=== PATIENT | female | born 1975 | race Caucasian/White ===

== ENCOUNTER 2016-08-14 15:04 | Emergency (ER) | payer MEDICAID ==
[2016-08-14] MEDS ORDERED: CLINDAMYCIN HCL 150 MG CAPSULE PO ONE (16:24)
--- NOTE | 2016-08-14 16:29 | ER Document Report ---
HPI - HPI Patient complains to provider of: tooth abscess Onset: Other - several days Pain Level: 5 Context: 41 yo female with toothpaina and abscess upper right frontal. No fever or chills. Also wants a referral to orthopedics for injury/deformity of 3rd left finger 1 month ago. She had cut it over the PIP joint frantz work and did not seek treatment. Associated Symptoms: None Exacerbated by: Denies Relieved by: Denies - ROS ROS below otherwise negative: Yes Systems Reviewed and Negative: Yes All other systems reviewed and negative - REPRODUCTIVE Reproductive: DENIES: : - DERM Skin Color: Normal Past Medical History - General Information source: Patient - Social History Smoking Status: Current Every Day Smoker Frequency of alcohol use: None Drug Abuse: None Lives with: Spouse/Significant other Family History: Arthritis, CVA, DM, Hyperlipidemia, Hypertension, Malignancy Patient has suicidal ideation: No Patient has homicidal ideation: No Pulmonary Medical History: Reports: Hx Asthma, Hx Bronchitis Renal/ Medical History: Reports: Hx Ovarian Cysts - PCOS.. Denies: Hx Peritoneal Dialysis Musculoskeltal Medical History: Reports Hx Musculoskeletal Deformity, Reports Hx Musculoskeletal Trauma Psychiatric Medical History: Reports: Hx Attention Deficit Hyperactivity Disorder, Hx Bipolar Disorder, Hx Post Traumatic Stress Disorder Past Surgical History: Reports: Hx Orthopedic Surgery - Knee - Immunizations Immunizations up to date: No Hx Diphtheria, Pertussis, Tetanus Vaccination: No Vertical Provider Document - CONSTITUTIONAL Agree With Documented VS: Yes Exam Limitations: No Limitations - INFECTION CONTROL TRAVEL OUTSIDE OF THE [place] 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 Cardenas who said to place the boutonniere deformity at a 90 angle of the MCP and a 90 angle at the PIP. I will have the patient call for follow- up appointment with Dr. ahn. 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 marion who is a hand specialist See the dentist Return to the emergency room for any increased facial swelling or pain or fever Please complete the patient satisfaction survey if you get one, and return it.. If you do not receive a survey, then you can go to the [facility] website, [email or web address] and place your comments about your very good care. Thank you very much. It was a pleasure being your medical provider today. Prescriptions: Ibuprofen [Motrin 800 mg Tablet] 800 mg PO Q8HP PRN #30 tablet PRN Reason: Clindamycin HCl [Cleocin 150 mg Capsule] 300 mg PO TID #42 capsule Referrals: LENCHO AHN DO [ACTIVE STAFF] - Follow up tomorrow (call the office for appt this week)
[2016-08-14] MEDS ORDERED: ONDANSETRON 4 MG TAB.RAPDIS PO ONE (16:31)
[2016-08-14] MEDS ORDERED: IBUPROFEN 800 MG TABLET PO ONE (16:31)
--- NOTE | 2016-08-14 17:24 | RADIOLOGY REPORT (SQ) ---
EXAM DESCRIPTION: FINGER LEFT COMPLETED DATE/TIME: 08/14/2016 5:06 pm REASON FOR STUDY: injury 1 month ago, left 3rd COMPARISON: None. NUMBER OF VIEWS: Three views. TECHNIQUE: AP, lateral, and oblique images acquired of the left third finger. LIMITATIONS: None. FINDINGS: MINERALIZATION: Normal. BONES: No acute fracture or dislocation. No worrisome bone lesions. SOFT TISSUES: 3rd digit PIP soft tissue swelling. No foreign body. OTHER: No other significant finding. IMPRESSION: 3rd digit PIP soft tissue swelling. No fracture identified. COMMENT: SITE OF TRAUMA/COMPLAINT MARKED/STAMP COMPLETED: No TECHNICAL DOCUMENTATION: JOB ID: [id number] [employer]- All Rights Reserved
[2016-08-14 18:24] VITALS: BP 128/72
== END 2016-08-14 18:18 | disposition home or self-care (01) ==
LOC: ER 15:04
DX: K04.7 Periapical abscess without sinus (principal); M20.022 Boutonniere deformity of left finger(s); W45.8XXS Other foreign body or object entering through skin, sequela; F17.200 Nicotine dependence, unspecified, uncomplicated; J45.909 Unspecified asthma, uncomplicated; K02.9 Dental caries, unspecified
CPT/HCPCS: 99283; 73140; S0119

== ENCOUNTER 2017-08-19 17:58 | Emergency (ER) | payer SELFPAY ==
[2017-08-19 18:06] VITALS: BP 112/53
--- NOTE | 2017-08-19 18:35 | RADIOLOGY REPORT (SQ) ---
EXAM DESCRIPTION: FINGER RIGHT COMPLETED DATE/TIME: 08/19/2017 6:25 pm REASON FOR STUDY: right 3rd finger dog bite COMPARISON: None. NUMBER OF VIEWS: Three views. TECHNIQUE: AP, lateral, and oblique images acquired of the right third finger. LIMITATIONS: None. FINDINGS: MINERALIZATION: Normal. BONES: No acute fracture or dislocation. No worrisome bone lesions. SOFT TISSUES: No soft tissue swelling. No foreign body. OTHER: No other significant finding. IMPRESSION: NO RADIOGRAPHIC EVIDENCE OF ACUTE INJURY. COMMENT: SITE OF TRAUMA/COMPLAINT MARKED/STAMP COMPLETED: No TECHNICAL DOCUMENTATION: JOB ID: [id number] [employer]- All Rights Reserved Reading location - IP/workstation name: [email or web address]
[2017-08-19] MEDS ORDERED: AMOXICILLIN TR/POT CLAVULANATE 500-125 MG TAB PO ONE (19:24)
[2017-08-19] MEDS ORDERED: DIPH/PERTUSS(ACELL)/TETANUS VAC/PF 0.5 ML SYR (>=10YO) IM ONE (19:31)
--- NOTE | 2017-08-19 19:35 | ER Document Report ---
ED Animal Bite - General Chief Complaint: Dog Bite Stated Complaint: DOG BITE/RIGHT MIDDLE FINGER Time Seen by Provider: 08/19/17 18:20 Mode of Arrival: Ambulatory Information source: Patient TRAVEL OUTSIDE OF THE [place] IN LAST 30 DAYS: No - HPI Patient complains to provider of: Right middle finger dog bite. Notes: Patient is here with complaints of dog bite to the right middle finger. She states that she was bit by her dog while at the vet. Her dog started to fight, she attempted to break the fight up and was accidentally bit at the proximal phalanx of the right middle finger. Bleeding is controlled. She is unsure of her last tetanus shot. She is unsure if her dog's immunizations are up-to-date , but the dog is at her house and they will be checking the dog for any signs of rabies. She denies any fevers. No nausea, vomiting, diarrhea. No numbness , tingling, weakness. No other injuries and no other complaints. - Related Data Allergies/Adverse Reactions: Latex, Natural Rubber Allergy (Verified 08/19/17 17:59) Past Medical History - Social History Smoking Status: Unknown if Ever Smoked Family History: Arthritis, CVA, DM, Hyperlipidemia, Hypertension, Malignancy Patient has suicidal ideation: No Patient has homicidal ideation: No Pulmonary Medical History: Reports: Hx Asthma, Hx Bronchitis Renal/ Medical History: Reports: Hx Ovarian Cysts - PCOS.. Denies: Hx Peritoneal Dialysis Musculoskeltal Medical History: Reports Hx Musculoskeletal Deformity, Reports Hx Musculoskeletal Trauma Psychiatric Medical History: Reports: Hx Attention Deficit Hyperactivity Disorder, Hx Bipolar Disorder, Hx Post Traumatic Stress Disorder Past Surgical History: Reports: Hx Orthopedic Surgery - Knee - Immunizations Immunizations up to date: No Hx Diphtheria, Pertussis, Tetanus Vaccination: No Review of Systems - Review of Systems -: Yes All other systems reviewed and negative Physical Exam - Vital signs Vitals: Temp Pulse Resp BP Pulse Ox 98.2 F 96 18 112/53 L 97 08/19/17 18:02 08/19/17 18:02 08/19/17 18:02 08/19/17 18:02 08/19/17 18:02 - Notes Notes: GENERAL: alert, cooperative, nontoxic, no distress. HEAD: normocephalic, atraumatic EYES: conjunctiva pink without discharge, no external redness or swelling. EARS: no external swelling, no external redness NOSE: atraumatic, no external swelling MOUTH/THROAT: mucous membranes moist and pink NECK: soft, supple, full range of motion, no meningismus. CHEST: no distress, lungs clear and equal throughout. No wheezing, rales, rhonchi. CARDIAC: regular rate and rhythm, no murmur, normal capillary refill, normal pulses. BACK: full range of motion, no CVA tenderness. EXTREMITIES: full range of motion of all extremities. No redness, no swelling. NEURO: alert and oriented 3, no focal deficits, full range of motion of all extremities. PYSCH: appropriate mood, affect. Patient is cooperative. SKIN: pink, warm, dry, no rash. Puncture wound to the proximal phalanx of the right middle finger. No active bleeding. No foreign body. Full flexion and extension of the finger with normal cap refill and sensation distally. No redness or drainage. Course - Re-evaluation Re-evalutation: 08/19/17 19:32 Patient is nontoxic-appearing with stable vitals. She is here with complaints of dog bite to the right middle finger. She was attempting to break up her 2 dogs fighting when she was bit on the right middle finger. She is unsure of her last tetanus. She is not completely sure of her dog's rabies shots are up- to-date, but animal control be checking the dog. She was given a tetanus here. Wound was cleaned and a sterile dressing was applied. She was given Augmentin here. She will be discharged home with a prescription for Augmentin. Prescription for Naprosyn as needed for pain. She is instructed to clean wound twice a day with soap and water. Follow-up for increasing pain, fever, redness, drainage, any further concerns. The patient's emergency department workup and current diagnosis were explained to the patient and or family. Follow-up instructions were provided. Medications if prescribed were discussed. Instructions for when to return to the emergency department including specific worrisome symptoms were discussed with the patient and/or family. - Vital Signs Vital signs: Temp Pulse Resp BP Pulse Ox 98.2 F 96 18 112/53 L 97 08/19/17 18:02 08/19/17 18:02 08/19/17 18:02 08/19/17 18:02 06/20/18 18:02 - Diagnostic Test Radiology reviewed: Image reviewed, Reports reviewed - Right hand negative for fracture or foreign body Discharge - Discharge Clinical Impression: Dog bite Qualifiers: Encounter type: initial encounter Qualified Code(s): W54.0XXA - Bitten by dog, initial encounter Condition: Stable Disposition: HOME, SELF-CARE Instructions: Animal Bites ([facility]) Additional Instructions: Take medication as prescribed. Drink lots of fluids. Clean wound twice a day with soap and water. Follow-up for increasing pain, fever, redness, drainage, any further concerns. Prescriptions: Amox Tr/Potassium Clavulanate [Augmentin 875-125 Tablet] 1 tab PO BID 10 Days tablet Naproxen [Naprosyn] 500 mg PO BID #20 tablet Forms: Smoking Cessation Education Referrals: [facility] [Provider Group] - Follow up as needed
== END 2017-08-19 20:05 | disposition home or self-care (01) ==
LOC: ER 17:58
DX: S61.252A Open bite of right middle finger without damage to nail, initial encounter (principal); W54.0XXA Bitten by dog, initial encounter; Y93.K9 Activity, other involving animal care; J45.909 Unspecified asthma, uncomplicated; Z23 Encounter for immunization; Z91.040 Latex allergy status
CPT/HCPCS: 90471; 90715; 99283

== ENCOUNTER 2018-09-26 11:15 | Emergency (ER) | payer SELFPAY ==
--- NOTE | 2018-09-26 12:49 | ER Document Report ---
ED Medical Screen (RME) - General Chief Complaint: Breathing Difficulty Stated Complaint: DIFFICULTY BREATHING Time Seen by Provider: 09/26/18 12:36 Notes: Patient is a 43-year-old female who presents to the emergency department with a chief complaint of back pain. She has had her back pain for the past few days. She states that she also has some dysuria. States the dysuria started first then had her back pain. She is also had some difficulty breathing. Patient does have history of asthma and hepatitis C. She is a current meth user. The last time she used meth was 1 week ago. Exam: CVA tenderness on both sides. I have greeted and performed a rapid initial assessment of this patient. A comprehensive ED assessment and evaluation of the patient, analysis of test results and completion of medical decision making process will be conducted by an additional ED providers. TRAVEL OUTSIDE OF THE [place] IN LAST 30 DAYS: No - Related Data Allergies/Adverse Reactions: Latex, Natural Rubber Allergy (Verified 09/26/18 11:15) Past Medical History - Social History Chew tobacco use (# tins/day): No Frequency of alcohol use: Rare Drug Abuse: Methamphetamine Pulmonary Medical History: Reports: Hx Asthma, Hx Bronchitis Renal/ Medical History: Reports: Hx Ovarian Cysts - PCOS.. Denies: Hx Periton eal Dialysis Musculoskeltal Medical History: Reports Hx Musculoskeletal Deformity, Reports Hx Musculoskeletal Trauma Psychiatric Medical History: Reports: Hx Attention Deficit Hyperactivity Disorder, Hx Bipolar Disorder, Hx Post Traumatic Stress Disorder Past Surgical History: Reports: Hx Orthopedic Surgery - Knee - Immunizations Immunizations up to date: No Hx Diphtheria, Pertussis, Tetanus Vaccination: No Physical Exam - Vital signs Vitals: Temp Pulse Resp BP Pulse Ox 97.6 F 107 H 18 136/88 H 100 09/26/18 11:18 09/26/18 11:18 09/26/18 11:18 09/26/18 11:18 09/26/18 11:18 Course - Vital Signs Vital signs: Temp Pulse Resp BP Pulse Ox 97.6 F 107 H 19 133/95 H 99 09/26/18 11:18 09/26/18 11:18 09/26/18 14:00 09/26/18 14:00 09/26/18 14:00 - Laboratory Result Diagrams: 09/26/18 13:20 09/26/18 13:20 Laboratory results interpreted by me: 09/26/18 09/26/18 09/26/18 13:20 13:20 13:20 Hgb 15.9 H Hct 47.8 H AST 87 H ALT 164 H Alkaline Phosphatase 127 H Urine Protein 100 H Urine Blood MODERATE H Ur Leukocyte Esterase SMALL H
[2018-09-26 13:36] LABS: ABSOLUTE LYMPHOCYTES (AUTO) 2.2 10^3/uL (0.5-4.7); ABSOLUTE NEUT (AUTO) 7.1 10^3/uL (1.7-8.2); BASOPHILS % (AUTO) 0.4 % (0-2); EOSINOPHILS % (AUTO) 0.4 % (0-6); HEMATOCRIT 47.8 % (36.0-47.0); HEMOGLOBIN 15.9 g/dL (12.0-15.5); MEAN CORPUSCULAR HGB CONC 33.3 g/dL (32.0-36.0); MEAN CORPUSCULAR VOLUME 93 fl (80-97); PLATELET COUNT 226 10^3/uL (150-450); RED BLOOD COUNT 5.13 10^6/uL (3.72-5.28); RED CELL DISTRIBUTION WIDTH 13.7 % (11.5-14.0); SEGMENTED NEUTROPHILS % (AUTO) 68.2 % (42-78); TOTAL CELLS COUNTED % (AUTO) 100 %; WHITE BLOOD COUNT 10.5 10^3/uL (4.0-10.5)
[2018-09-26 13:53] LABS: APPEARANCE,URINE CLEAR; BILIRUBIN,URINE NEGATIVE (NEGATIVE); COLOR,URINE YELLOW; GLUCOSE, URINE NEGATIVE (NEGATIVE); KETONES,URINE NEGATIVE (NEGATIVE); LEUKOCYTE ESTERASE,URINE SMALL (NEGATIVE); NITRITE,URINE NEGATIVE (NEGATIVE); PROTEIN,URINE 100 mg/dL (NEGATIVE); URINE SPECIFIC GRAVITY 1.012; UROBILINOGEN,URINE NEGATIVE mg/dL (<2.0)
[2018-09-26 13:57] LABS: ALANINE AMINOTRANSFERASE 164 U/L (9-52); ALBUMIN 4.7 g/dL (3.5-5.0); ALKALINE PHOSPHATASE 127 U/L (38-126); ANION GAP 14 (5-19); ASPARTATE AMINO TRANSFERASE 87 U/L (14-36); BILIRUBIN,DIRECT 0.4 mg/dL (0.0-0.4); BILIRUBIN,TOTAL 0.8 mg/dL (0.2-1.3); BLOOD UREA NITROGEN 10 mg/dL (7-20); CALCIUM 9.9 mg/dL (8.4-10.2); CARBON DIOXIDE 23 mmol/L (22-30); CHLORIDE 102 mmol/L (98-107); CREATINE KINASE 31 U/L (30-135); GLUCOSE 103 mg/dL (75-110); POTASSIUM 4.3 mmol/L (3.6-5.0); TOTAL PROTEIN 8.1 g/dL (6.3-8.2)
--- NOTE | 2018-09-26 14:12 | ER Document Report ---
ED Respiratory Problem - General Chief Complaint: Breathing Difficulty Stated Complaint: DIFFICULTY BREATHING Time Seen by Provider: 09/26/18 12:36 TRAVEL OUTSIDE OF THE [place] IN LAST 30 DAYS: No - Related Data Allergies/Adverse Reactions: Latex, Natural Rubber Allergy (Verified 09/26/18 11:15) Past Medical History - Social History Smoking Status: Current Every Day Smoker Chew tobacco use (# tins/day): No Frequency of alcohol use: Rare Drug Abuse: Methamphetamine Family History: Arthritis, CVA, DM, Hyperlipidemia, Hypertension, Malignancy Patient has suicidal ideation: No Patient has homicidal ideation: No Pulmonary Medical History: Reports: Hx Asthma, Hx Bronchitis Renal/ Medical History: Reports: Hx Ovarian Cysts - PCOS.. Denies: Hx Peritoneal Dialysis Musculoskeletal Medical History: Reports Hx Musculoskeletal Deformity, Reports Hx Musculoskeletal Trauma Psychiatric Medical History: Reports: Hx Attention Deficit Hyperactivity Disorder, Hx Bipolar Disorder, Hx Post Traumatic Stress Disorder Past Surgical History: Reports: Hx Orthopedic Surgery - Knee - Immunizations Immunizations up to date: No Hx Diphtheria, Pertussis, Tetanus Vaccination: No Physical Exam - Vital signs Vitals: Temp Pulse Resp BP Pulse Ox 97.6 F 107 H 18 136/88 H 100 09/26/18 11:18 09/26/18 11:18 09/26/18 11:18 09/26/18 11:18 09/26/18 11:18 Course - Re-evaluation Re-evalutation: 09/26/18 14:11 09/26/18 14:39 - Vital Signs Vital signs: Temp Pulse Resp BP Pulse Ox 97.6 F 107 H 19 133/95 H 99 09/26/18 11:18 09/26/18 11:18 09/26/18 14:00 09/26/18 14:00 09/26/18 14:00 - Laboratory Result Diagrams: 09/26/18 13:20 09/26/18 13:20 Laboratory results interpreted by me: 09/26/18 09/26/18 09/26/18 13:20 13:20 13:20 Hgb 15.9 H Hct 47.8 H APTT AST 87 H ALT 164 H Alkaline Phosphatase 127 H Urine Protein 100 H Urine Blood MODERATE H Ur Leukocyte Esterase SMALL H 09/26/18 14:00 Hgb Hct APTT 23.0 L AST ALT Alkaline Phosphatase Urine Protein Urine Blood Ur Leukocyte Esterase
[2018-09-26 14:16] LABS: INTERNATIONAL RATION (INR) 0.96; PROTHROMBIN TIME 12.8 SEC (11.4-15.4)
[2018-09-26 14:19] LABS: D-DIMER 0.36 ug/mL (0.00-0.50)
--- NOTE | 2018-09-26 14:19 | RADIOLOGY REPORT (SQ) ---
EXAM DESCRIPTION: CHEST SINGLE VIEW COMPLETED DATE/TIME: 09/26/2018 2:02 pm REASON FOR STUDY: difficulty breathing COMPARISON: 2015 NUMBER OF VIEWS: One view. TECHNIQUE: Single frontal radiographic view of the chest acquired. LIMITATIONS: None. FINDINGS: LUNGS AND PLEURA: No opacities, masses or pneumothorax. No pleural effusion. Attenuated bl ood vessels and flattened aamir-diaphragms. MEDIASTINUM AND HILAR STRUCTURES: No masses. Contour normal. HEART AND VASCULAR STRUCTURES: Heart normal in size. Normal vasculature. BONES: No acute findings. HARDWARE: None in the chest. OTHER: No other significant finding. IMPRESSION: COPD. NO ACUTE RADIOGRAPHIC FINDING IN THE CHEST. TECHNICAL DOCUMENTATION: JOB ID: [id number] [employer]- All Rights Reserved Reading location - IP/workstation name: [email or web address]
[2018-09-26] MEDS ORDERED: CEFTRIAXONE 1 GM/D5W RTU 1 GM/50 ML RTUPB IV ONE (14:37)
--- NOTE | 2018-09-26 14:39 | ER Document Report ---
ED General - General Chief Complaint: Breathing Difficulty Stated Complaint: DIFFICULTY BREATHING Time Seen by Provider: 09/26/18 12:36 Information source: Patient Notes: HPI: 43-year-old female that presents today with 3 days of bilateral back pain and some dysuria. She denies fevers or vomiting. She denies a history of diabetes. She denies any weakness or numbness of her legs, abdominal pain, or chest pain. She does states she has some increased back pain at times when she takes a deep breath. She denies any cough. She does have a history of asthma. She denies any calf pain, leg swelling, recent trips or travel. No history of kidney stones. No family history of kidney stones. No family history of D VT/PE. ROS: See HPI All other review of systems reviewed and otherwise negative Reviewed vital signs and nursing note as charted by RN. PHYSICAL EXAM: CONSTITUTIONAL: Alert and oriented and responds appropriately to questions. Well-appearing; well-nourished HEAD: Normocephalic; atraumatic EYES: PERRL; Conjunctivae clear, sclerae non-icteric CARD: Regular rate and rhythm; no murmurs; symmetric distal pulses RESP: Normal chest excursion without splinting or tachypnea; breath sounds clear and equal bilaterally; no wheezes, no rhonchi, no rales ABD/GI: Normal bowel sounds; non-distended; soft, non-tender; no palpable organomegaly or masses BACK: The back appears normal and is non-tender to palpation along the midline spine; patient does have some bilateral flank pain with no swelling or erythema EXT: Normal ROM in all joints; non-tender to palpation; no edema SKIN: No acute lesions noted NEURO: CN 2-12 intact; 5/5 bilateral upper and lower extremity strength with sensation intact to light touch PSYCH: The patient's mood and manner are appropriate. Grooming and personal h ygiene are appropriate. TRAVEL OUTSIDE OF THE [place] IN LAST 30 DAYS: No - Related Data Allergies/Adverse Reactions: Latex, Natural Rubber Allergy (Verified 09/26/18 11:15) Past Medical History - Social History Smoking Status: Current Every Day Smoker Chew tobacco use (# tins/day): No Frequency of alcohol use: Rare Drug Abuse: Methamphetamine Family History: Arthritis, CVA, DM, Hyperlipidemia, Hypertension, Malignancy Patient has suicidal ideation: No Patient has homicidal ideation: No Pulmonary Medical History: Reports: Hx Asthma, Hx Bronchitis Renal/ Medical History: Reports: Hx Ovarian Cysts - PCOS.. Denies: Hx Peritoneal Dialysis Musculoskeletal Medical History: Reports Hx Musculoskeletal Deformity, Reports Hx Musculoskeletal Trauma Psychiatric Medical History: Reports: Hx Attention Deficit Hyperactivity Disorder, Hx Bipolar Disorder, Hx Post Traumatic Stress Disorder Past Surgical History: Reports: Hx Orthopedic Surgery - Knee - Immunizations Immunizations up to date: No Hx Diphtheria, Pertussis, Tetanus Vaccination: No Physical Exam - Vital signs Vitals: Temp Pulse Resp BP Pulse Ox 97.6 F 107 H 18 136/88 H 100 09/26/18 11:18 09/26/18 11:18 09/26/18 11:18 09/26/18 11:18 09/26/18 11:18 Course - Re-evaluation Re-evalutation: Given the history and physical examination we will order basic labs, cardiac labs, urine analysis, and reassess. A d-dimer was ordered in triage. I do believe pulmonary embolism, ACS, or aortic dissection to be extremely unlikely. Patient has had no missed menstrual periods, vaginal bleeding or discharge. She denies any pelvic pain. No personal family history of kidney stones. 09/26/18 14:39 EKG shows a heart rate of 99, normal sinus rhythm, normal axis, no ST elevation or depression. Labs as recorded. White blood cell count is recorded. Urine analysis showing multiple white blood cells. Vital signs are stable with no hypoxia or tachycardia. 09/26/18 14:45 Patient denies any and all pain at this time. Only 7 red blood cells in the urine. Patient denies any nausea and the pain is much better. She was sleeping upon my arrival into the emergency department. I do not believe any CT imaging is necessary at this time. Given the lack of fever, diabetes, or vomiting, I will provide 1 g of Rocephin and send a urine culture and start the patient on a course of Keflex. Patient is comfortable with this plan and disposition. - Vital Signs Vital signs: Temp Pulse Resp BP Pulse Ox 97.6 F 107 H 19 133/95 H 99 09/26/18 11:18 09/26/18 11:18 09/26/18 14:00 09/26/18 14:00 09/26/18 14:00 - Laboratory Result Diagrams: 09/26/18 13:20 09/26/18 13:20 Laboratory results interpreted by me: 09/26/18 09/26/18 09/26/18 13:20 13:20 13:20 Hgb 15.9 H Hct 47.8 H APTT AST 87 H ALT 164 H Alkaline Phosphatase 127 H Urine Protein 100 H Urine Blood MODERATE H Ur Leukocyte Esterase SMALL H 09/26/18 14:00 Hgb Hct APTT 23.0 L AST ALT Alkaline Phosphatase Urine Protein Urine Blood Ur Leukocyte Esterase Discharge - Discharge Clinical Impression: Pyelonephritis Condition: Good Disposition: HOME, SELF-CARE Additional Instructions: Come back immediately with any increased pain, fevers or vomiting, anterior chest pain or abdominal pain, rash, or any other acute problems. Please take the antibiotics as prescribed and please follow-up with the primary care physician as discussed regarding reassessment of the urine analysis and culture. Prescriptions: Cephalexin Monohydrate [Keflex 500 mg Capsule] 500 mg PO TID 10 Days #30 capsule
[2018-09-26 15:10] VITALS: BP 154/93
--- NOTE | 2018-09-26 21:34 | EKG REPORT ---
SEVERITY:- NORMAL ECG - SINUS RHYTHM : Confirmed by: Abhay Wallace 26-Sep-2018 21:32:08
== END 2018-09-26 16:28 | disposition home or self-care (01) ==
LOC: ER 11:15
DX: N12 Tubulo-interstitial nephritis, not specified as acute or chronic (principal); R06.00 Dyspnea, unspecified; R30.0 Dysuria; F17.200 Nicotine dependence, unspecified, uncomplicated; Z91.040 Latex allergy status
CPT/HCPCS: 93005; 99284; 36415; 87086; 82553; 82550; 84703; 85025; 85610; 85730; 87088; 80053; 81001; 84484; 85379; 71045; 93010; J0696; 87186

== ENCOUNTER 2019-05-15 18:03 | Emergency (ER) | payer SELFPAY ==
--- NOTE | 2019-05-15 18:43 | ER Document Report ---
HPI - HPI Time Seen by Provider: 05/15/19 18:40 Onset: Other - This a 43-year-old female has a history of right knee pain and dislocation she had surgery on it in 2011 she states that she had a dislocated approximately a month ago was able to get back in and seems to be popping in and out since that point in time. She tripped over her dog today and also has pain to her right elbow as well as that right knee today. - REPRODUCTIVE Reproductive: DENIES: : Past Medical History - Social History Smoking Status: Current Every Day Smoker Chew tobacco use (# tins/day): No Smoking Education Provided: No Family History: Arthritis, CVA, DM, Hyperlipidemia, Hypertension, Malignancy Pulmonary Medical History: Reports: Hx Asthma, Hx Bronchitis Renal/ Medical History: Reports: Hx Ovarian Cysts - PCOS.. Denies: Hx Peritoneal Dialysis Musculoskeletal Medical History: Reports Hx Musculoskeletal Deformity, Reports Hx Musculoskeletal Trauma Psychiatric Medical History: Reports: Hx Attention Deficit Hyperactivity Disorder, Hx Bipolar Disorder, Hx Post Traumatic Stress Disorder Past Surgical History: Reports: Hx Orthopedic Surgery - Knee - Immunizations Immunizations up to date: No Hx Diphtheria, Pertussis, Tetanus Vaccination: No Vertical Provider Document - CONSTITUTIONAL Agree With Documented VS: Yes - INFECTION CONTROL TRAVEL OUTSIDE OF THE [place] IN LAST 30 DAYS: No - HEENT HEENT: Atraumatic, Conjuctival Injection, Normocephalic, PERRLA - NECK Neck: Normal Inspection Course - Vital Signs Vital signs: Temp Pulse Resp BP Pulse Ox 98.4 F 105 H 18 143/95 H 100 05/15/19 18:19 05/15/19 18:19 05/15/19 18:19 05/15/19 18:19 05/15/19 18:19 - Diagnostic Test Radiology results interpreted by me: 05/15/19 19:25 Elbow X-Ray 05/15/19 18:41 IMPRESSION: NEGATIVE STUDY OF THE RIGHT ELBOW. NO RADIOGRAPHIC EVIDENCE OF ACUTE INJURY. Knee X-Ray 05/15/19 18:41 IMPRESSION: Moderate-sized effusion. No acute bony findings. - Transfer of Care Notes: 05/15/19 19:25 Patient presented to the emergency room with a knee immobilizer on patient should keep an knee immobilizer on follow-up with her orthopedist in 3 to 5 days return to the emergency room for any change worsening condition. Discharge - Discharge Clinical Impression: Knee effusion, right Disposition: HOME, SELF-CARE Instructions: Use of Crutches ([facility]), Ice & Elevation ([facility]) Prescriptions: Ibuprofen 400 mg PO TID #20 tablet
--- NOTE | 2019-05-15 19:16 | RADIOLOGY REPORT (SQ) ---
EXAM DESCRIPTION: ELBOW RIGHT OVER 2 VIEWS COMPLETED DATE/TIME: 05/15/2019 7:04 pm REASON FOR STUDY: PAIN COMPARISON: None. NUMBER OF VIEWS: Four views. TECHNIQUE: AP, lateral, and both oblique radiographic images acquired of the right elbow. LIMITATIONS: None. FINDINGS: MINERALIZATION: Normal. BONES: No acute fracture or dislocation. No worrisome bone lesions. JOINT: No effusion. SOFT TISSUES: No soft tissue swelling. No foreign body. OTHER: No other significant finding. IMPRESSION: NEGATIVE STUDY OF THE RIGHT ELBOW. NO RADIOGRAPHIC EVIDENCE OF ACUTE INJURY. TECHNICAL DOCUMENTATION: JOB ID: [id number] 2010 [employer]- All Rights Reserved Reading location - IP/workstation name: [email or web address]
--- NOTE | 2019-05-15 19:17 | RADIOLOGY REPORT (SQ) ---
EXAM DESCRIPTION: KNEE RIGHT 3 VIEWS COMPLETED DATE/TIME: 05/15/2019 7:04 pm REASON FOR STUDY: PAIN COMPARISON: None. NUMBER OF VIEWS: Four views. TECHNIQUE: AP, lateral, and sunrise patella radiographic images acquired of the right knee. LIMITATIONS: None. FINDINGS: MINERALIZATION: Normal. BONES: No acute fracture or dislocation. No worrisome bone lesions. JOINT: A moderate effusion is present SOFT TISSUES: No soft tissue swelling. No radio-opaque foreign body. OTHER: No other significant finding. IMPRESSION: Moderate-sized effusion. No acute bony findings. TECHNICAL DOCUMENTATION: JOB ID: [id number] 2010 [employer]- All Rights Reserved Reading location - IP/workstation name: [email or web address]
[2019-05-15 19:42] VITALS: BP 135/80
== END 2019-05-15 19:41 | disposition home or self-care (01) ==
LOC: ER 18:03
DX: M25.461 Effusion, right knee (principal); F17.200 Nicotine dependence, unspecified, uncomplicated; W18.49XA Other slipping, tripping and stumbling without falling, initial encounter
CPT/HCPCS: 99283

== ENCOUNTER 2019-05-24 14:40 | Emergency (ER) | payer SELFPAY ==
[2019-05-24] MEDS ORDERED: NAPROXEN 250 MG TABLET PO ONE (14:57)
--- NOTE | 2019-05-24 14:59 | ER Document Report ---
HPI - HPI Time Seen by Provider: 05/24/19 14:52 Pain Level: 4 Context: Patient is a 43-year-old female who presents to the emergency department with a chief complaint of right knee pain. Patient was seen here a little over a week ago with similar symptoms. At that time, she tripped over her dog. Yesterday she felt like her knee was popping and out of place. Patient has history of knee surgery in 2011, states that she had the surgery done in [place]. States that she has not been using crutches to help get around. States that she has not been taking medication to help with the pain. - CONSTITUTIONAL Constitutional: DENIES: Fever, Chills - EENT EENT: DENIES: Sore Throat, Ear Pain - CARDIOVASCULAR Cardiovascular: DENIES: Chest pain - RESPIRATORY Respiratory: DENIES: Trouble Breathing, Coughing - REPRODUCTIVE Reproductive: DENIES: : - MUSCULOSKELETAL Musculoskeletal: REPORTS: Extremity pain - right medial knee. DENIES: Back Pain - DERM Skin Color: Normal Skin Problems: None Past Medical History - General Information source: Patient - Social History Smoking Status: Current Every Day Smoker Family History: Arthritis, CVA, DM, Hyperlipidemia, Hypertension, Malignancy Patient has suicidal ideation: No Patient has homicidal ideation: No Pulmonary Medical History: Reports: Hx Asthma, Hx Bronchitis Renal/ Medical History: Reports: Hx Ovarian Cysts - PCOS.. Denies: Hx Peritoneal Dialysis Musculoskeletal Medical History: Reports Hx Musculoskeletal Deformity, Reports Hx Musculoskeletal Trauma Psychiatric Medical History: Reports: Hx Attention Deficit Hyperactivity Disorder, Hx Bipolar Disorder, Hx Post Traumatic Stress Disorder Past Surgical History: Reports: Hx Orthopedic Surgery - Knee - Immunizations Immunizations up to date: No Hx Diphtheria, Pertussis, Tetanus Vaccination: No Vertical Provider Document - CONSTITUTIONAL Agree With Documented VS: Yes Exam Limitations: No Limitations General Appearance: No Apparent Distress - INFECTION CONTROL TRAVEL OUTSIDE OF THE [place] IN LAST 30 DAYS: No - HEENT HEENT: Atraumatic, Normocephalic, PERRLA - NECK Neck: Normal Inspection - RESPIRATORY Respiratory: No Respiratory Distress - CARDIOVASCULAR Cardiovascular: Regular Rhythm Pulses: Normal: Posterior tibial, Dorsalis pedis - MUSCULOSKELETAL/EXTREMETIES Musculoskeletal/Extremeties: Tender - Right medial knee, No Edema, Eccymosis - Right medial knee - NEURO Level of Consciousness: Awake, Alert, Appropriate Motor/Sensory: No Motor Deficit, No Sensory Deficit - DERM Integumentary: Warm, Dry, No Rash Course - Re-evaluation Re-evalutation: 05/24/19 15:37 Patient's right knee x-ray has improved from last visit and she does not have a joint effusion, as she did a little over a week ago. Tenderness noted to MCL area. Advised the patient to use the knee immobilizer until she is able to follow-up with orthopedics. Will provide the patient crutches, as she states that she did not receive crutches. Will follow-up with orthopedics. Patient will receive Decadron to help with inflammation. Dorsalis pedis and posterior pulses 2+. No vascular compromise noted. Capillary refill less than 3 seconds. Follow-up precautions were given. Verbal discharge instructions were given to the patient. They verbalized understanding. They are stable for discharge. - Vital Signs Vital signs: Temp Pulse Resp BP Pulse Ox 98.1 F 96 16 125/72 98 05/24/19 14:50 05/24/19 14:50 05/24/19 14:50 05/24/19 14:50 05/24/19 14:50 Procedures - Immobilization Right Leg Pre-Proc Neuro Vasc Exam: Normal Immobilizer type: Crutches Performed by: PCT Post-Proc Neuro Vasc Exam: Normal, Unchanged from pre-exam Alignment checked and good: Yes Discharge - Discharge Clinical Impression: Right knee pain Qualifiers: Chronicity: acute Qualified Code(s): M25.561 - Pain in right knee Condition: Stable Disposition: HOME, SELF-CARE Instructions: Use of Crutches ([facility]), Knee Immobilizing Splint ([facility]) Additional Instructions: You were seen today in the emergency department for right knee pain. Your knee x-ray appears better than when you were here a little over a week ago. Please wear the knee splint given to you. Use crutches. Take naproxen for pain relief. Please follow-up with orthopedics in regards to this visit. Prescriptions: Naproxen 500 mg PO BID #30 tablet Referrals: HERMES LUCAS MD [ACTIVE STAFF] - Follow up in 3-5 days SHAINA SANTAMARIA JR, DO [ACTIVE PROVISIONAL STAFF] - Follow up in 3-5 days KAYLEEN MARTIN MD [ACTIVE PROVISIONAL STAFF] - Follow up in 3-5 days
--- NOTE | 2019-05-24 15:21 | RADIOLOGY REPORT (SQ) ---
EXAM DESCRIPTION: KNEE RIGHT 4 VIEWS COMPLETED DATE/TIME: 05/24/2019 3:12 pm REASON FOR STUDY: right knee pain COMPARISON: None. NUMBER OF VIEWS: Four views. TECHNIQUE: AP, lateral, and both oblique radiographic images acquired of the right knee. LIMITATIONS: None. FINDINGS: MINERALIZATION: Normal. BONES: No acute fracture or dislocation. No worrisome bone lesions. JOINT: No effusion. SOFT TISSUES: No soft tissue swelling. No radio-opaque foreign body. OTHER: No other significant finding. IMPRESSION: NEGATIVE STUDY OF THE RIGHT KNEE. NO RADIOGRAPHIC EVIDENCE OF ACUTE INJURY. TECHNICAL DOCUMENTATION: JOB ID: [id number] 2010 [email or web address]- All Rights Reserved Reading location - IP/workstation name: [email or web address]
[2019-05-24] MEDS ORDERED: DEXAMETHASONE SOD PHOS INJ 10 MG/1 ML VIAL IM ONE (15:36)
[2019-05-24 15:57] VITALS: BP 145/84
== END 2019-05-24 16:02 | disposition home or self-care (01) ==
LOC: ER 14:40
DX: M25.561 Pain in right knee (principal); M25.461 Effusion, right knee; W01.0XXD Fall on same level from slipping, tripping and stumbling without subsequent striking against object, subsequent encounter
CPT/HCPCS: 99283; 96374; 73564; J1100

== ENCOUNTER 2020-01-25 12:31 | Emergency (ER) | payer SELFPAY ==
[2020-01-25 12:47] VITALS: BP 103/69
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
[2020-01-25 14:04] LABS: APPEARANCE,URINE CLEAR; BILIRUBIN,URINE NEGATIVE (NEGATIVE); COLOR,URINE STRAW; GLUCOSE, URINE NEGATIVE (NEGATIVE); KETONES,URINE NEGATIVE (NEGATIVE); LEUKOCYTE ESTERASE,URINE NEGATIVE (NEGATIVE); NITRITE,URINE NEGATIVE (NEGATIVE); PROTEIN,URINE NEGATIVE (NEGATIVE); URINE SPECIFIC GRAVITY 1.008; UROBILINOGEN,URINE NEGATIVE mg/dL (<2.0)
--- NOTE | 2020-01-25 19:34 | EKG REPORT ---
SEVERITY:- NORMAL ECG - SINUS RHYTHM : Confirmed by: Amanuel Gordon MD 25-Jan-2020 19:34:09
== END 2020-01-25 14:46 | disposition left against medical advice (07) ==
LOC: ER 12:31
DX: R07.81 Pleurodynia (principal); R51.9 Headache, unspecified; Y04.2XXA Assault by strike against or bumped into by another person, initial encounter; J45.909 Unspecified asthma, uncomplicated; Z91.040 Latex allergy status; Z53.20 Procedure and treatment not carried out because of patient's decision for unspecified reasons
CPT/HCPCS: 71046; 81001; 93005; 93010; 99281; 99285